=== PATIENT | male | born 1970 ===

== ENCOUNTER → 2021-03-19 06:51 | Outpatient (CLI) | payer OTHER | END | disposition home or self-care (01) | LOC: LAB 06:51 | PROVIDERS: ATTEND Internal Medicine Cardiovascular Disease | DX: I10 Essential (primary) hypertension (principal); E03.4 Atrophy of thyroid (acquired); E78.2 Mixed hyperlipidemia; Z12.5 Encounter for screening for malignant neoplasm of prostate; E55.9 Vitamin D deficiency, unspecified ==